=== PATIENT | male | born 1970 | race Hispanic/Latino ===

== ENCOUNTER 2018-07-11 08:21 | Outpatient (CLI) | payer BC ==
--- NOTE | 2018-07-11 08:53 | ULT ---
Soft tissue sonogram right groin HISTORY: Right groin pain. Groin surgery approximately 7 years ago. FINDINGS: Sonographic evaluation of the right groin in region of pain shows no underlying masses or f luid collections. Vasculature is visualized without abnormality. IMPRESSION: No significant abnormalities are demonstrated.
== END 2018-07-11 08:22 | disposition home or self-care (01) ==
LOC: BICULT 08:21
PROVIDERS: ATTEND Family Medicine
DX: R19.09 Other intra-abdominal and pelvic swelling, mass and lump (principal)
CPT/HCPCS: 76999

== ENCOUNTER 2023-09-10 09:12 | Outpatient (CLI) | payer BC | END 2023-09-10 09:13 | disposition home or self-care (01) | LOC: BICMAMMO 09:12 | PROVIDERS: ATTEND Family Medicine | DX: N63.0 Unspecified lump in unspecified breast (principal) | CPT/HCPCS: 77066; G0279 ==